=== PATIENT | female | born 1985 | race Caucasian/White ===

== ENCOUNTER 2018-02-15 20:35 | Emergency (ER) | payer OTHER, MEDICAID ==
[2018-02-15] MEDS: DEXAMETHASONE 10 MG/ML 1 ML INJ IM (23:13)
[2018-02-15] MEDS: KETOROLAC 60 MG INJ IM (23:14)
== END 2018-02-15 23:51 | disposition home or self-care (01) ==
LOC: FTE 20:35
DX: S39.012A Strain of muscle, fascia and tendon of lower back, initial encounter (principal); X58.XXXA Exposure to other specified factors, initial encounter; Y92.89 Other specified places as the place of occurrence of the external cause
CPT/HCPCS: 96372; 99284-25